=== PATIENT | male | born 1970 | race Caucasian/White ===

== ENCOUNTER 2016-08-19 17:15 | Observation (INO) | payer BC ==
[~2016-08-19] VITALS: Ht 170.2 cm; Wt 94.8 kg
[~2016-08-19 17:15] MED LIST: KEFLEX500 MG PO; NOHOMEMEDS; PERCOCET 5/31 TABLET PO; SILVADENE20 GM TP
[2016-08-19 18:15] LABS: HEMATOCRIT 45.2 % (38.0-50.0); MCH 33.2 PG (29.0-34.0); MEAN PLAT.VOLUME 9.9 uM^3 (9.0-12.4); PLATELET COUNT 239 K/uL (156-360); RBC DIS.WIDTH-CV 13.3 % (11.8-14.6); RBC DIS.WIDTH-SD 44.2 % (39-53); RED BLOOD COUNT 4.76 M/uL (4.00-5.50); WHITE BLOOD COUNT 19.7 K/uL (4.1-10.2)
[2016-08-19 18:26] LABS: CHLORIDE 107 mEq/L (99-109); POTASSIUM 4.2 mEq/L (3.7-5.4); SODIUM 143 mEq/L (136-147)
[2016-08-19 18:28] LABS: GLUCOSE 93 mg/dL (70-99)
[2016-08-19 18:30] LABS: ANION GAP 11 MEQ/L (2-14)
[2016-08-19 18:32] LABS: GFR ESTIMATE (CALCULATED) > 59 mL/min/
[2016-08-19 18:33] LABS: UREA NITROGEN (BUN) 9 mg/dL (9-23)
[2016-08-19 21:06] LABS: EOSINOPHIL (%) 2.5 % (0-5); EOSINOPHIL COUNT 0.5 K/uL (0-0.3); IMMATURE GRANULOCYTE (%) 0.3 % (0.0-0.7); IMMATURE GRANULOCYTE COUNT 0.5 K/uL; LYMPHOCYTE COUNT 2.5 K/uL (1.0-2.8); MONOCYTE (%) 4.8 % (3-12); NEUTROPHIL (%) 79.6 % (45-76); NEUTROPHIL COUNT 15.7 K/uL (1.8-6.4)
[2016-08-19 21:09] LABS: INFLUENZA A VIRAL ANTIGEN NEGATIVE; INFLUENZA B VIRAL ANTIGEN NEGATIVE
[2016-08-19 21:31] LABS: TOTAL BILIRUBIN 0.3 mg/dL (0.0-1.0)
[2016-08-19 21:32] LABS: ALKALINE PHOSPHATASE 82 IU/L (3-129)
[2016-08-19 21:35] LABS: DIRECT BILIRUBIN 0.1 mg/dL (0.0-0.3)
[2016-08-19] MEDS ORDERED: AFRIN,GENASAL D15 ML BOTH NARES (22:17)
[2016-08-20 06:17] LABS: HEMATOCRIT 38.2 % (38.0-50.0); MCH 32.8 PG (29.0-34.0); MCHC 34.6 G/DL (30.0-36.0); MEAN PLAT.VOLUME 10.1 uM^3 (9.0-12.4); PLATELET COUNT 230 K/uL (156-360); RBC DIS.WIDTH-CV 13.2 % (11.8-14.6); RBC DIS.WIDTH-SD 43.9 % (39-53); RED BLOOD COUNT 4.02 M/uL (4.00-5.50); WHITE BLOOD COUNT 15.7 K/uL (4.1-10.2)
[2016-08-20 06:38] LABS: CHLORIDE 114 mEq/L (99-109); POTASSIUM 4.3 mEq/L (3.7-5.4); SODIUM 141 mEq/L (136-147)
[2016-08-20 06:41] LABS: ANION GAP 10 MEQ/L (2-14)
[2016-08-20 06:42] LABS: GLUCOSE 203 mg/dL (70-99); TOTAL BILIRUBIN 0.2 mg/dL (0.0-1.0)
[2016-08-20 06:43] LABS: ALKALINE PHOSPHATASE 62 IU/L (3-129)
[2016-08-20 06:44] LABS: GFR ESTIMATE (CALCULATED) > 59 mL/min/
[2016-08-20 06:45] LABS: UREA NITROGEN (BUN) 12 mg/dL (9-23)
[2016-08-20 08:00] VITALS: BP 130/78
[2016-08-20] MEDS ORDERED: NICOTINE PATCH1 EAC2 TD (11:39)
[2016-08-20] MEDS ORDERED: VENTOLIN HFA18 GM IH (11:40)
[2016-08-20] MEDS ORDERED: SPIRIVA RESPIMAT4 G1 IH (11:40)
[2016-08-20] MEDS ORDERED: ADVAIR HFA120 INHALA IH (11:40)
[2016-08-20] MEDS ORDERED: AZITHROMYCIN500 MG PO (11:41)
[2016-08-20] MEDS ORDERED: MEDROL DOSEPAK4 MG PO (11:41)
== END 2016-08-20 14:10 | disposition home or self-care (01) ==
LOC: EME 17:15 → EDOF 22:00
PROVIDERS: Emergency Medicine; Internal Medicine
DX: J20.9 Acute bronchitis, unspecified (principal); F17.200 Nicotine dependence, unspecified, uncomplicated; I10 Essential (primary) hypertension; D72.829 Elevated white blood cell count, unspecified; Z82.49 Family history of ischemic heart disease and other diseases of the circulatory system
CPT/HCPCS: 71020; 71250; 80048; 80053; 80076; 83605; 85025; 85027; 87040; 87502; 94640; 94640 76; 99202; 99281; 99285; G0378; J0456; J0696; J1100; J3370; J7030; J7050